=== PATIENT | male | born 2000 | race Caucasian/White ===

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

== ENCOUNTER 2024-12-22 02:43 | Emergency (ER) | payer SELFPAY ==
[2024-12-22] MEDS ORDERED: Acetaminophen 500 MG TAB ONE (03:03)
== END 2024-12-22 03:29 | disposition home or self-care (01) ==
LOC: MADERS 02:43
DX: S42.032A Displaced fracture of lateral end of left clavicle, initial encounter for closed fracture (principal); S30.810A Abrasion of lower back and pelvis, initial encounter; F17.210 Nicotine dependence, cigarettes, uncomplicated; V86.55XA Driver of 3- or 4- wheeled all-terrain vehicle (ATV) injured in nontraffic accident, initial encounter
CPT/HCPCS: 99284